=== PATIENT | male | born 1965 | race Caucasian/White ===

== ENCOUNTER 2023-07-05 12:27 | Inpatient (IN) | payer BC, OTHER ==
[2023-07-05] MEDS ORDERED: Iopamidol-370 76% 500 ML MDV (1 ML CHARGE) ONE (12:35)
[2023-07-05 13:38] LABS: #Basophils 0.1 thou/uL (0.0-0.2); #Eosinphils 0.1 thou/uL (0.0-0.7); #Monocytes 0.8 thou/uL (0.11-0.59); #Neutrophils 7.2 thou/uL (1.40-6.50); %Basophils 0.7 % (0.0-1.0); %Eosinophils 1.3 % (0.0-10.0); %Lymphocytes 22.3 % (21.0-51.0); %Monocytes 7.3 % (0.0-10.0); %Neutrophils 67.9 % (42.0-75.0); Hematocrit 42.8 % (42.0-52.0); Hemoglobin 15.2 g/dL (14.0-18.0); Mean Corpuscular HGB CONC 35.5 g/dL (32.0-36.0); Mean Corpuscular Hemoglobin 34.5 pg (27.0-31.0); Mean Corpuscular Volume 97.1 fl (78.0-98.0); Platelet Count 303 10x3/uL (130-400); RBC Distribution Width 13.8 % (11.5-14.5); Red Blood Cell (RBC) Count 4.41 mill/uL (4.70-6.10); White Blood Cell (WBC) Count 10.7 10x3/uL (4.8-10.8)
[2023-07-05 14:03] LABS: ALT (SGPT) 29 U/L (8-55); AST (SGOT) 23 U/L (5-34); Albumin 3.5 g/dL (3.5-5.0); Alkaline Phosphatase 60 U/L (40-110); Anion Gap 13 mmol/L (10-20); BUN (Urea Nitrogen) 13 mg/dL (8.4-25.7); Calc. Creatinine Clearance 0 mL/min (70-130); Calcium 8.1 mg/dL (7.8-10.44); Carbon Dioxide 21 mmol/L (22-29); Chloride 99 mmol/L (98-107); Estimated GFR 98; Globulin 2.2 g/dL (2.4-3.5); Glucose 96 mg/dL (70-105); Potassium 4.3 mmol/L (3.5-5.1); Protein, Total 5.7 g/dL (6.0-8.3); Sodium 129 mmol/L (136-145)
[2023-07-05 14:13] LABS: Troponin I 0.028 ng/mL (< 0.028)
[2023-07-05 17:25] LABS: Troponin I 0.036 ng/mL (< 0.028)
[2023-07-05] MEDS ORDERED: Ondansetron PF 4 MG/2 ML Vial IVP PRN (18:22)
[2023-07-05] MEDS ORDERED: Acetaminophen 650 MG Suppository PR PRN (18:22)
[2023-07-05] MEDS ORDERED: Ondansetron ODT 4 MG TAB PO PRN (18:22)
[2023-07-05] MEDS ORDERED: Aspirin Chewable 81 MG TAB ONE (18:45)
[2023-07-05] MEDS ORDERED: Furosemide 40 MG (4 mL) VIAL ONE (18:45)
[2023-07-05] MEDS ORDERED: Nitroglycerin 0.4 MG TAB (25 Tab Bottle) SL PRN (19:21)
[2023-07-05] MEDS: guaiFENesin ER 600 MG TAB PO SCH (22:10)
[2023-07-05] MEDS: Benzonatate 100 MG CAP PO PRN (22:11)
[2023-07-05] MEDS: Famotidine 20 MG TAB PO SCH (22:11)
[2023-07-05] MEDS: Melatonin 3 MG TAB PO SCH (22:11)
[2023-07-05 22:56] LABS: Legionella Urinary Ag Negative (Negative)
[2023-07-05 22:58] LABS: Magnesium 1.9 mg/dL (1.6-2.6)
[2023-07-05] MEDS: Ketorolac Tromethamine 30 MG (1 mL) VIAL IVP SCH (23:09)
[2023-07-05 23:19] LABS: Influenza A by NAA Not Detected (NotDetected); Influenza B by NAA Not Detected (NotDetected); SARS-CoV-2 NAA Rapid Test Not Detected (NotDetected)
[2023-07-05] MEDS: Sodium Chloride 0.9% 500 ML IV SCH (23:34)
[2023-07-05 23:49] LABS: Troponin I 0.035 ng/mL (< 0.028)
[2023-07-06] MEDS: Furosemide 40 MG (4 mL) VIAL SLOW IVP SCH (05:48)
[2023-07-06] MEDS: Benzocaine/Menthol 1 LOZ LOZ PO PRN (05:49)
[2023-07-06 06:11] LABS: #Basophils 0.1 thou/uL (0.0-0.2); #Eosinphils 0.2 thou/uL (0.0-0.7); #Monocytes 0.8 thou/uL (0.11-0.59); #Neutrophils 6.4 thou/uL (1.40-6.50); %Basophils 0.8 % (0.0-1.0); %Eosinophils 1.8 % (0.0-10.0); %Lymphocytes 21.2 % (21.0-51.0); %Monocytes 8.4 % (0.0-10.0); %Neutrophils 67.3 % (42.0-75.0); Hematocrit 44.1 % (42.0-52.0); Hemoglobin 15.2 g/dL (14.0-18.0); Mean Corpuscular HGB CONC 34.5 g/dL (32.0-36.0); Mean Corpuscular Hemoglobin 34.5 pg (27.0-31.0); Mean Platelet Volume 9.3 fL (7.4-10.4); Platelet Count 273 10x3/uL (130-400); White Blood Cell (WBC) Count 9.5 10x3/uL (4.8-10.8)
[2023-07-06 06:15] LABS: Hemoglobin A1c 5.1 % (4.0-6.0)
[2023-07-06 06:16] LABS: Mean Corpuscular Volume 100.2 fl (78.0-98.0)
[2023-07-06 06:27] LABS: Anion Gap 10 mmol/L (10-20); BUN (Urea Nitrogen) 14 mg/dL (8.4-25.7); Calc. Creatinine Clearance 115 mL/min (70-130); Calcium 8.2 mg/dL (7.8-10.44); Carbon Dioxide 26 mmol/L (22-29); Cardiac Risk 2.1 (Less than 4.5); Chloride 101 mmol/L (98-107); Cholesterol 139 mg/dl (< 200 Desired); Estimated GFR 92; Glucose 89 mg/dL (70-105); HDL Cholesterol 67 mg/dL (>60 Neg Risk); LDL Cholesterol, Calculated 63 mg/dL; Magnesium 1.7 mg/dL (1.6-2.6); Sodium 133 mmol/L (136-145); Triglycerides 46 mg/dL (Less than 150)
[2023-07-06] MEDS: Ipratropium/Albuterol 3 ML NEB NEB SCH (07:19)
[2023-07-06] MEDS: Acetaminophen 325 MG TAB PO PRN (07:53)
[2023-07-06] MEDS: Aspirin Chewable 81 MG TAB PO SCH (07:53)
[2023-07-06] MEDS: Empagliflozin 10 MG TAB PO SCH (10:30)
[2023-07-06] MEDS: Losartan 25 MG TAB PO SCH (13:01)
[2023-07-06] MEDS: Furosemide 20 MG (2 mL) VIAL SLOW IVP SCH (13:01)
[2023-07-06] MEDS: Enoxaparin 40 MG (0.4 mL) SYRINGE SC SCH (16:03)
[2023-07-06] MEDS: Magnesium Sulfate 3 GM in Sodium Chloride 0.9% 100 ML IVPB SCH (16:04)
[2023-07-06] MEDS: Carvedilol 3.125 MG TAB PO SCH (16:09)
[2023-07-06] MEDS: Potassium Chloride 20 MEQ TAB PO SCH (16:09)
[2023-07-06] MEDS: Ketorolac Tromethamine 30 MG (1 mL) VIAL IVP PRN (21:56)
[2023-07-06] MEDS: GUAIFENESIN SF SOLN 200 MG/10 ML UDCUP PO PRN (21:56)
[2023-07-07 06:40] LABS: Anion Gap 11 mmol/L (10-20); BUN (Urea Nitrogen) 16 mg/dL (8.4-25.7); Calc. Creatinine Clearance 89 mL/min (70-130); Calcium 8.5 mg/dL (7.8-10.44); Carbon Dioxide 24 mmol/L (22-29); Chloride 99 mmol/L (98-107); Estimated GFR 71; Glucose 90 mg/dL (70-105); Magnesium 2.3 mg/dL (1.6-2.6); Potassium 3.8 mmol/L (3.5-5.1); Sodium 130 mmol/L (136-145)
[2023-07-07] MEDS: Ipratropium/Albuterol 3 ML NEB NEB PRN (07:17)
[2023-07-07] MEDS: Losartan 25 MG TAB PO SCH (09:26)
[2023-07-07] MEDS: Empagliflozin 10 MG TAB PO SCH (09:27)
[2023-07-07] MEDS: Potassium Chloride 20 MEQ TAB PO SCH (09:28)
[2023-07-07] MEDS: Enoxaparin 40 MG (0.4 mL) SYRINGE SC SCH (09:29)
[2023-07-07] MEDS ORDERED: Communication Order-Pharmacy FS SCH (18:00)
[2023-07-08 06:34] LABS: Anion Gap 11 mmol/L (10-20); BUN (Urea Nitrogen) 19 mg/dL (8.4-25.7); Calc. Creatinine Clearance 78 mL/min (70-130); Calcium 8.4 mg/dL (7.8-10.44); Carbon Dioxide 26 mmol/L (22-29); Chloride 99 mmol/L (98-107); Estimated GFR 61; Glucose 101 mg/dL (70-105); Potassium 3.8 mmol/L (3.5-5.1); Sodium 132 mmol/L (136-145)
[2023-07-08] MEDS: Sacubitril 24MG/Valsartan 26 MG TAB PO SCH (08:49)
[2023-07-08] MEDS: Metolazone 5 MG TAB PO SCH (14:54)
[2023-07-09 05:13] LABS: Anion Gap 9 mmol/L (10-20); BUN (Urea Nitrogen) 16 mg/dL (8.4-25.7); Calc. Creatinine Clearance 73 mL/min (70-130); Carbon Dioxide 30 mmol/L (22-29); Chloride 97 mmol/L (98-107); Estimated GFR 56; Glucose 104 mg/dL (70-105); Potassium 3.4 mmol/L (3.5-5.1); Sodium 133 mmol/L (136-145)
[2023-07-09] MEDS: Potassium Chloride 20 MEQ TAB PO SCH (09:08)
[2023-07-10] MEDS ORDERED: Communication Order-Pharmacy FS SCH ×2 (08:45→18:00)
[2023-07-10 08:59] LABS: Anion Gap 14 mmol/L (10-20); BUN (Urea Nitrogen) 18 mg/dL (8.4-25.7); Calc. Creatinine Clearance 70 mL/min (70-130); Calcium 9.5 mg/dL (7.8-10.44); Carbon Dioxide 28 mmol/L (22-29); Chloride 93 mmol/L (98-107); Estimated GFR 59; Glucose 111 mg/dL (70-105); Potassium 3.8 mmol/L (3.5-5.1); Sodium 131 mmol/L (136-145)
[2023-07-10] MEDS: Fluticasone Propionate Nasal Spray 16 gm Bottle NASAL SCH (09:19)
[2023-07-10] MEDS ORDERED: Sodium Chloride 0.9% 1,000 ML IV SCH (17:00)
[2023-07-11 05:31] LABS: Anion Gap 16 mmol/L (10-20); BUN (Urea Nitrogen) 22 mg/dL (8.4-25.7); Calc. Creatinine Clearance 78 mL/min (70-130); Calcium 8.9 mg/dL (7.8-10.44); Carbon Dioxide 23 mmol/L (22-29); Chloride 98 mmol/L (98-107); Estimated GFR 66; Glucose 97 mg/dL (70-105); Potassium 3.1 mmol/L (3.5-5.1); Sodium 134 mmol/L (136-145)
[2023-07-11] MEDS: Sodium Chloride 0.9% 1,000 ML IV SCH (06:06)
[2023-07-11] MEDS ORDERED: Nitroglycerin 50 MG/250 ML BOT 0 ML ONE (06:33)
[2023-07-11] MEDS ORDERED: Midazolam HCl 2 mg/2 ml Vial ONE (07:07)
[2023-07-11] MEDS ORDERED: fentaNYL 50 mcg/mL 1 mL Vial ONE (07:07)
[2023-07-11] MEDS ORDERED: diphenhydrAMINE 50 MG/ML VIAL ONE (07:11)
[2023-07-11] MEDS: Potassium Chloride 20 MEQ TAB PO SCH ×2 (08:45→17:30)
[2023-07-11] MEDS: Furosemide 40 MG (4 mL) VIAL SLOW IVP SCH ×2 (08:45→17:30)
[2023-07-11] MEDS: methylPREDNISolone Sod Succ 40 MG VIAL IVP SCH (13:03)
[2023-07-11] MEDS: guaiFENesin/Codeine 200 mg/20 mg 10 ml Cup PO SCH (13:13)
[2023-07-11] MEDS ORDERED: Communication Order-Pharmacy FS SCH (17:45)
[2023-07-12] MEDS ORDERED: fentaNYL 50 mcg/mL 1 mL Vial ONE (06:12)
[2023-07-12] MEDS ORDERED: Midazolam HCl 2 mg/2 ml Vial ONE (06:12)
[2023-07-12] MEDS ORDERED: Lidocaine 1% (PF) 30 ML VIAL ONE (06:12)
[2023-07-12] MEDS ORDERED: Heparin 10,000 UNITS/ 10 ML VIAL ONE (06:12)
[2023-07-12] MEDS ORDERED: Nitroglycerin 50 MG/250 ML BOT 0 ML ONE (06:13)
[2023-07-12] MEDS: Furosemide 40 MG (4 mL) VIAL SLOW IVP SCH (06:49)
[2023-07-12] MEDS: Potassium Chloride 20 MEQ TAB PO SCH (06:49)
[2023-07-12 08:19] LABS: BUN (Urea Nitrogen) 25 mg/dL (8.4-25.7); Calc. Creatinine Clearance 61 mL/min (70-130); Calcium 9.1 mg/dL (7.8-10.44); Carbon Dioxide 20 mmol/L (22-29); Estimated GFR 49; Glucose 136 mg/dL (70-105)
[2023-07-12 09:29] LABS: Anion Gap 20 mmol/L (10-20); Chloride 97 mmol/L (98-107); Sodium 132 mmol/L (136-145)
[2023-07-12] MEDS: diphenhydrAMINE 50 MG/ML VIAL IVP SCH (09:50)
[2023-07-12 12:24] VITALS: BMI 27.5
[2023-07-12] MEDS ORDERED: Communication Order-Pharmacy FS SCH (15:00)
[2023-07-12 18:15] LABS: Anion Gap 19 mmol/L (10-20); BUN (Urea Nitrogen) 30 mg/dL (8.4-25.7); Calc. Creatinine Clearance 61 mL/min (70-130); Calcium 8.9 mg/dL (7.8-10.44); Carbon Dioxide 16 mmol/L (22-29); Chloride 99 mmol/L (98-107); Estimated GFR 49; Glucose 137 mg/dL (70-105); Potassium 4.2 mmol/L (3.5-5.1); Sodium 130 mmol/L (136-145)
[2023-07-12] MEDS: Sacubitril 24MG/Valsartan 26 MG TAB PO SCH (19:40)
[2023-07-13] MEDS: Sodium Chloride 0.9% 1,000 ML IV SCH (06:00)
[2023-07-13] MEDS ORDERED: Verapamil 5 MG/2 ML VIAL ONE (06:25)
[2023-07-13] MEDS ORDERED: Nitroglycerin 50 MG/250 ML BOT 250 ML ONE (06:25)
[2023-07-13] MEDS ORDERED: Heparin 10,000 UNITS/ 10 ML VIAL ONE (06:25)
[2023-07-13] MEDS ORDERED: Midazolam HCl 2 mg/2 ml Vial ONE (07:11)
[2023-07-13 09:15] LABS: Anion Gap 12 mmol/L (10-20); BUN (Urea Nitrogen) 27 mg/dL (8.4-25.7); Calc. Creatinine Clearance 84 mL/min (70-130); Calcium 9.2 mg/dL (7.8-10.44); Carbon Dioxide 24 mmol/L (22-29); Chloride 101 mmol/L (98-107); Estimated GFR 72; Glucose 124 mg/dL (70-105); Potassium 4.1 mmol/L (3.5-5.1); Sodium 133 mmol/L (136-145)
[2023-07-13 11:21] VITALS: BP 128/85; TEMP 98.2
[2023-07-13] MEDS ORDERED: Iopamidol 370 76% 100 ML VIAL ONE (12:00)
[2023-07-13] MEDS ORDERED: Carvedilol 3.125 MG TAB PO SCH (17:00)
[2023-07-13] MEDS ORDERED: Rosuvastatin 10 MG TAB PO SCH (21:00)
[2023-07-14] MEDS ORDERED: Potassium Chloride 20 MEQ TAB PO SCH (08:00)
[2023-07-14] MEDS ORDERED: Furosemide 20 MG TAB PO SCH (09:00)
== END 2023-07-13 14:01 | disposition home or self-care (01) | DRG 286 ==
LOC: ERS 12:27 → 2SW 18:23
PROVIDERS: ADMIT Internal Medicine; ATTEND Internal Medicine
PROC: 4A023N7 Measurement of Cardiac Sampling and Pressure, Left Heart, Percutaneous Approach (ICD-10-PCS; principal; 2023-07-05)
PROC: B2111ZZ Fluoroscopy of Multiple Coronary Arteries using Low Osmolar Contrast (ICD-10-PCS; 2023-07-05)
PROC: B2151ZZ Fluoroscopy of Left Heart using Low Osmolar Contrast (ICD-10-PCS; 2023-07-05)
DX: I11.0 Hypertensive heart disease with heart failure (principal); I50.43 Acute on chronic combined systolic (congestive) and diastolic (congestive) heart failure; E87.1 Hypo-osmolality and hyponatremia; I25.10 Atherosclerotic heart disease of native coronary artery without angina pectoris; F41.8 Other specified anxiety disorders; R05.9 Cough, unspecified; F19.10 Other psychoactive substance abuse, uncomplicated; N28.9 Disorder of kidney and ureter, unspecified; Z80.42 Family history of malignant neoplasm of prostate; Z82.49 Family history of ischemic heart disease and other diseases of the circulatory system; Z71.6 Tobacco abuse counseling
CPT/HCPCS: 36415; 71045; 71275; 80048; 80053; 80061; 83036; 83735; 83880; 83930; 83935; 84300; 84443; 84484; 85025; 87324; 87449; 87633; 87798; 87899; 93005; 93306; 93458; 93798; 94640; 96374; 99152; 99153; C1769; C1894; J1200; J1644; J1650; J1885; J1940; J2001; J2250; J2920; J3010; J3475; J3490; J7030; J7050; J7620; Q9967